=== PATIENT | male | born 1990 | race African-American/Black ===

== ENCOUNTER 2020-08-01 21:09 | Inpatient (IN) | payer OTHER, SELFPAY ==
--- NOTE | ~2020-08-01 | XR_ITS ---
EXAMINATION: XR chest 1V portable DATE: 08/02/2020 09:40 INDICATION: Right-sided pneumonia. TECHNIQUE: A single frontal view of the chest was obtained. COMPARISON: Chest CT 08/01/2020 FINDINGS: There are airspace opacities in right lower lung zone with areas of cavitation. There are m ild airspace opacities in left lower lung zone. No pleural effusion or pneumothorax. The heart size i s normal. IMPRESSION: 1. Airspace opacities in right lower lung zone with areas of cavitation, consistent with pneumonia. 2. Mild airspace opacities in left lower lung zone, consistent with atelectasis versus pneumonia. Reviewed, dictated and finalized at location A. WASHER IMPRESSION: 1. Airspace opacities in right lower lung zone with areas of cavitation, consis tent with pneumonia. 2. Mild airspace opacities in left lower lung zone, consistent with atelectasis versus pneumonia.
--- NOTE | ~2020-08-01 | CT_ITS ---
EXAMINATION:CT chest wo con DATE: 08/05/2020 08:07 INDICATION: Right middle lobe necrotizing pneumonia. TECHNIQUE: Computed tomography (CT) of the chest was performed without intravenous contrast. Automate d exposure control and iterative reconstruction technique were employed. The dose-length product (DLP ) was 758.36 mGy-cm. COMPARISON: Chest CT 08/01/2020 FINDINGS: There is a moderate-sized loculated right hydropneumothorax. There is mild atelectasis in r ight upper lobe and right lower lobe. There are airspace opacities and groundglass opacities in right middle lobe with cavitation, consistent with pneumonia. The heart size is normal. No pericardial eff usion. There is mild mediastinal lymphadenopathy, likely reactive. The bones are unremarkable. IMPRESSION: 1. Persistent necrotizing pneumonia in right lung middle lobe. 2. New loculated right-sided hydropneumothorax, likely empyema. 3. Mild mediastinal lymphadenopathy, likely reactive. Reviewed, dictated and finalized at location A. OR DESIGN ENGINEERING SPECIALIST
--- NOTE | ~2020-08-01 | XR_ITS ---
XR chest 1V portable 08/04/2020 05:52 Indication: Right necrotizing pneumonia Procedure: AP portable chest Comparison: Comparison to multiple prior studies sequentially, with oldest reviewed study dated 02/2021. Findings: Heart size normal. Left lung clear. Asymmetric right-sided airspace disease with consolidat ion of the right middle lobe. Possible small right effusion. No pneumothorax. Impression: 1: Progression of asymmetric airspace disease of the right lung with focal consolidation right middle lobe, most likely combination of pneumonia and/or atelectasis. Reviewed, dictated and finalized at location A. ER OPERATOR Impression: 1: Progression of asymmetric airspace disease of the right lung with focal cons olidation right middle lobe, most likely combination of pneumonia and/or atelec tasis.
--- NOTE | ~2020-08-01 | XR_ITS ---
XR chest 1V portable 08/03/2020 06:01 Indication: Right-sided pneumonia Procedure: AP portable chest Comparison: 08/02/2020 Findings: Heart size normal. Asymmetric right basilar airspace consolidation, consistent with pneumon ia. No significant interval change. Impression: 1: Stable airspace consolidation right lower lung zone, most likely pneumonia. 2: Small right pleural effusion. Reviewed, dictated and finalized at location A. TRUCK DRIVER Impression: 1: Stable airspace consolidation right lower lung zone, most likely pneumonia. 2: Small right pleural effusion.
--- NOTE | ~2020-08-01 | CT_ITS ---
EXAMINATION: CTA chest PE protocol EXAM DATE: 08/01/2020 22:56 INDICATION: Right CP with shortness of air. TECHNIQUE: Spiral CTA of the chest (pulmonary arteries) was performed with 100 cc Omnipaque 350 intr avenous contrast injection. Suboptimal pulmonary arterial opacification, however patient declined rep eat injection. Images were acquired during the pulmonary arterial phase. Coronal maximum intensity p rojection 3D-reconstructions were created by the technologist on dedicated workstation. Axial, coron al and sagittal reformatted images were reviewed. The dose-length product (DLP) for this examination was 1016.03 mGy-cm. The exposure was tailored according to patient size (auto mA exposure control) , and iterative reconstruction (ASIR) was used as additional dose reduction technique. There is no p rior study for comparison. FINDINGS: There is suboptimal enhancement of the pulmonary arteries, and also some respiratory motio n limiting evaluation of segmental arteries. No central pulmonary emboli. No thoracic aortic dissect ion. Subsegmental right middle lobe consolidation with cystic change and air fluid levels. Appearanc e is most consistent with necrotic pneumonia, most likely bacterial. Left lung is clear. Trace perica rdial and right pleural effusions. Tracheobronchial tree is patent. There is no mediastinal, hilar or axillary lymphadenopathy. There is no pneumothorax. Heart normal in size. No evidence of co ronary arterial calcification. Upper abdomen is unremarkable. The bones are unremarkable. IMPRESSION: 1. Limited segmental evaluation, but no central pulmonary emboli. 2. Necrotic right middle lobe lateral segmental pneumonia. Reviewed, dictated and finalized at location G. SCIENCE PROFESSOR
--- NOTE | ~2020-08-01 | XR_ITS ---
EXAMINATION: XR chest 1V portable INDICATION: Necrotizing pneumonia of the right lung TECHNIQUE: Portable AP chest at 0540 hours COMPARISON: 08/04/2020 FINDINGS: Airspace opacities of the right mid and upper lung zones are unchanged. There are worsening opacities of the right lung base. The left lung is clear. No definite pleural effusion is identified . There is no pneumothorax. The cardiomediastinal silhouette is stable. IMPRESSION: 1. Right lung disease with worsening in the lung base, consistent with pneumonia. Reviewed, dictated and finalized at location A. ENTRY PROFESSIONAL IMPRESSION: 1. Right lung disease with worsening in the lung base, consistent with pneumoni a.
[2020-08-01 21:12] VITALS: BP 118/65; PULSE 128; RESP 18; TEMP 36.4; O2SAT 96
[2020-08-01 22:00] LABS: Basophils Absolute Auto 0.2 K/mm3 (0.0-0.1); Basophils Percent Auto 0.7 % (0.2-1.2); Eosinophils Absolute Auto 1.5 K/mm3 (0-0.3); Eosinophils Percent Auto 5.9 % (0-4.4); Hematocrit 46.7 % (42.0-52.0); Hemoglobin 16.4 g/dL (14.0-18.0); Immature Granulocyte Absolute 0.88 K/mm3 (0.00-0.031); Immature Granulocyte Percent A 3.6 % (0-0.5); Immature Platelet Fraction Pct 8.3 % (0.9-11.2); Lymphocytes Absolute Auto 0.96 K/mm3 (0.9-3.2); Lymphocytes Percent Auto 3.9 % (18.3-44.2); Mean Corpuscular HGB Conc 35.1 g/dl (32-36); Mean Corpuscular Hemoglobin 33.1 pg (26-34); Mean Corpuscular Volume 94.2 fl (80-100); Mean Platelet Volume 11.9 fl (7.4-10.4); Monocytes Percent Auto 7.9 % (2.6-8.5); Neutrophils Absolute Auto 19.3 K/mm3 (1.3-6.7); Platelet Count Result 239 k/mm3 (150-375); Red Blood Count 4.96 M/mm3 (4.6-6.20); White Blood Count 24.8 K/mm3 (4.5-10.0)
--- NOTE | 2020-08-01 22:00 | ED.GENADULT ---
HPI - General Adult General Chief complaint: Unspecified Stated complaint: coughing up blood/ right flank pain Time Seen by Provider: 08/01/20 21:32 History of Present Illness HPI narrative: Patient is a 30-year-old male who presents ER with hemoptysis. Reports he woke up today and was having pain in his right chest wall and has been having frequent coughing. He began to have stent streaks of blood in his sputum which is increased in amount. He reports exertional dyspnea beginning today as well. He has history of asthma and feels like he is wheezing. He has been using his nebulizer with only mild improvement. Patient reports over the last 2 to 3 days she has been having cyclical sweats and chills. No loss of smell or taste. 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 No other additional known sick contacts. He has had no lower extremity swelling. No recent surgery or long distance travel. No previous history of DVT/PE. Related Data Home Medications Medication Instructions Recorded Confirmed albuterol sulfate 2 puff INHALATION TID PRN 08/02/20 08/02/20 albuterol sulfate 2.5 mg INHALATION BID 08/02/20 08/02/20 budesonide-formoterol [Symbicort] 2 puff INHALATION BID 08/02/20 08/02/20 Allergies Allergy/AdvReac Type Severity Reaction Status Date / Time No Known Allergies Allergy Verified 08/01/20 21:11 Review of Systems Review of Systems: All systems reviewed & are unremarkable except as noted in HPI and below Constitutional: Constitutional: Reports chills, Reports excessive sweating, Reports fatigue and Reports night sweats ENT: Denies nasal congestion and Denies sore throat Cardiovascular: Cardiovascular: Reports chest pain, Reports diaphoresis, Denies rapid heart rate and Denies leg edema Respiratory: Respiratory: Reports cough, Reports hemoptysis and Reports dyspnea Gastrointestinal: Gastrointestinal: Denies abdominal pain, Denies nausea and Denies vomiting Musculoskeletal: Musculoskeletal: Denies back pain and Denies myalgias PMF Past Medical History Medical History (Updated 08/02/20 @ 06:30 by Charlie Villalpando MD) Asthma Surgical History Surgical History No history of previous surgery Social History Social History Smoking status: Current every day smoker Tobacco type: cigarettes Second hand tobacco smoke exposure: Yes Additional smoking assessment comments: Daily Marijuana use Alcohol intake: current Substance use: current Substance use type: marijuana Last use: 08/01/2020 Gender identity (if verbalized by the patient): Male Exam Narrative: Exam Narrative: GENERAL: Ill-appearing, well-nourished, diaphoretic, and in no acute distress. HEAD: Normocephalic, atraumatic. EYES: PERRL and EOMI. CHEST: Scattered rhonchi/wheezing. No respiratory distress. No reproducible chest wall tenderness HEART: Tachycardic and regular. Normal peripheral pulses. ABDOMEN: Soft, nontender, nondistended. EXTREMITIES: Normal range of motion. No edema. NEURO: Alert and oriented x3. PSYCH: Normal mood and affect. Course Course Emergency Course: Discussed with Dr. Kim, requested consult with Pulmonology. A call has been sent out to Dr. Morfin but we have not heard back. Will attempt to touch base with a ticketer at [facility]. Reevaluation(s) Reevaluation #1: Discussed with Dr. Walden with Pulm/Crit who would recommend transfer for pulmonology and potentially CT Surg consultation. May have necrosis from eosinophilia. Recommeneds abx, no steroids. Will speak with medicine team. Date: 08/02/20 Time: 00:35 Reevaluation #2: Spoke with Dr. Villa with medicine, he has accepted the patient. No beds at this time, and unlikely to get one today. Will obs with hospitalist while we wait for a bed to open up. Date: 08/02/20 Time: 00:44 Vital Signs Vital signs: Vital Sig
[2020-08-01] MEDS: SODIUM CHLORIDE 0.9% IV 1,000 ML 999 ML IV CONT (22:07)
[2020-08-01] MEDS: MORPHINE SULFATE (*CRX) 4 MG/ML INJ IV PUSH (22:07)
[2020-08-01 22:09] LABS: Prothrombin Time 14.2 Seconds (11.1-14.7)
[2020-08-01 22:10] LABS: Partial Thromboplastin Time 28.6 SECONDS (22.3-36.8)
[2020-08-01 22:33] LABS: Anion Gap 8 mmol/L (8-16); Blood Urea Nitrogen 15 mg/dL (9-20); Calcium 8.7 mg/dL (8.4-10.2); Carbon Dioxide 27 mmol/L (22-30); Chloride 102 mmol/L (98-107); Estimated CRCL calculation 109 ml/min; Estimated Glomerular Filt Rate > 60; Glucose 151 mg/dL (75-110); Potassium 3.7 mmol/L (3.4-5.0); Sodium 137 mmol/L (137-145)
[2020-08-01] MEDS: HYDROmorphone HCL INJ (*CRX) 1 MG/ML SYR IV PUSH (23:07)
[2020-08-01 23:27] VITALS: PULSE 108; RESP 16
[2020-08-01] MEDS: IPRATROPIUM BR 0.02% INH SOLN 0.5 MG/2.5 ML VIAL INHALATION (23:31)
[2020-08-01] MEDS: ALBUTEROL SULFATE NEB 2.5 MG/0.5 ML INH 5 MG INHALATION (23:31)
[2020-08-02] VITALS (15 sets, daily range): BP systolic 121–154; BP diastolic 77–97; PULSE 91–110; RESP 18–28; TEMP 35.6–37.6; O2SAT 94–100; BMI 39.6
--- NOTE | 2020-08-02 01:52 | PM.IMHP ---
H&P: HPI History of Present Illness Date/Time: 08/02/20 01:52 Chief Complaint: Shortness of breath and right sided chest pain tonight Narrative: This is a pleasant 30-year-old morbidly obese male with known history of chronic asthma presented to the hospital with a complaint of 2 days of right-sided costal tenderness, productive cough of blood-tinged sputum, and increased shortness of breath. The patient woke up today with right-sided costal tenderness and worsening shortness of breath. Associated symptoms included wheezing. He denies any fever, chills, nausea, vomiting, anterior chest pain, abdominal pain, dysuria, hematuria, diarrhea, or rectal bleeding. The patient is not on any blood thinners. He was seen in the emergency room a few days ago when he had right lower back pain and at that time he was told he had a UTI. Patient denies any previous history of significant pneumonia. no history of any previous surgeries or clotting disorders. Patient was evaluated emergency room this evening and found to be septic with tachycardia and elevated white count of 24,800. Chest CT scan revealed a necrotic right middle lobe lateral segmental pneumonia. ER provider has discussed the case with pulmonology at [facility] who recommended that the patient be transferred for cardiothoracic surgical consultation as the patient may need thoracotomy. Dr. Villa, hospitalist, has accepted the patient for transfer although there is no beds available at this time. The patient has been placed on a waiting list we have been asked to admit him to our hospital for ongoing care until he could be transferred to [facility]. Patient has been treated with wide-spectrum antibiotics in the ER tonight and has been swab for COVID-19. Review of Systems Review of Systems: All systems reviewed & are unremarkable except as noted in HPI and below PMFSH Past Medical History Medical History (Updated 08/02/20 @ 02:05 by Shyam Kim MD) Asthma Surgical History Surgical History No history of previous surgery Social History Social History Smoking status: Current every day smoker Tobacco type: cigarettes Second hand tobacco smoke exposure: Yes Additional smoking assessment comments: Daily Marijuana use Alcohol intake: current Substance use: current Substance use type: marijuana Last use: 08/01/2020 Gender identity (if verbalized by the patient): Male Comments family Medical history is reviewed and is noncontributory Meds Home Medications and Allergies Home Medications Medication Instructions Recorded Confirmed Type albuterol sulfate 2 puff INHALATION TID PRN 08/02/20 08/02/20 History albuterol sulfate 2.5 mg INHALATION BID 08/02/20 08/02/20 History budesonide-formoterol [Symbicort] 2 puff INHALATION BID 08/02/20 08/02/20 History Allergies Allergy/AdvReac Type Severity Reaction Status Date / Time No Known Allergies Allergy Verified 08/01/20 21:11 Vital Signs Vital Signs - 24 hr 08/01/20 21:12 08/01/20 23:27 08/02/20 01:51 Temperature 36.4 C L Pulse Rate 128 H 108 H 95 Respiratory Rate 18 16 19 Blood Pressure 118/65 121/83 Pulse Oximetry 96 94 Exam Const: General: cooperative, no acute distress, alert, awake, acute distress mild and ill appearing Nutritional Appearance: obese morbidly obese Orientation/consciousness: patient oriented x3 HENMT: Head: normal to inspection General nose exam: Normal external nose present Face and sinus: normal facial exam Mouth: Yes Normal oral and palatal mucosa present and Yes oropharynx normal Eyes: Pupils: Equal, round and reactive pupils present EOM: EOMs intact bilaterally Neck: Neck: supple and no JVD Thyroid: thyroid normal Lymphatic: lymphadenopathy not noted Chest: Other: significant chest tenderness to palpation of right latera
--- NOTE | 2020-08-02 02:01 | ADMGEN ---
This patient, Emery Garcia, was admitted to 3 [facility] Surg Room 315-01. Patient/family oriented to hospital policies and general routines including ID bracelet, bed and alarms, visiting hours, pain management, procedures, bathroom and other care routines, personal items, smoking policy, room service/diet, and visiting hours. Information on how to activate the Rapid Response Team has been discussed. Patient/Family are encouraged to report perceived risks to care and to ask questions if they do not understand what they are told or what they should do.
[2020-08-02] MEDS: HYDROmorphone HCL INJ (*CRX) 1 MG/ML SYR IV PUSH ×5 (03:10→21:18)
[2020-08-02] MEDS: HYDROcodone/acetaminophen (*CRX) 5-325 MG TABLET 1 TAB PO ×5 (04:21→23:58)
[2020-08-02] MEDS: SODIUM CHLORIDE 0.9% IV 1,000 ML 100 ML IV CONT ×2 (04:22→16:16)
[2020-08-02] MEDS: ALBUTEROL SULFATE (*SP) INHALER 1 PUFF (05:59)
[2020-08-02 06:22] LABS: Hematocrit 45.5 % (42.0-52.0); Hemoglobin 15.6 g/dL (14.0-18.0); Mean Corpuscular HGB Conc 34.3 g/dl (32-36); Mean Corpuscular Hemoglobin 32.1 pg (26-34); Mean Corpuscular Volume 93.6 fl (80-100); Mean Platelet Volume 10.9 fl (7.4-10.4); Platelet Count Result 257 k/mm3 (150-375); Red Blood Count 4.86 M/mm3 (4.6-6.20); Red Cell Distribution Width 12.1 % (11.5-14.5); White Blood Count 27.8 K/mm3 (4.5-10.0)
[2020-08-02 06:26] LABS: Hemoglobin A1C 4.7 % (<5.7)
[2020-08-02 06:29] LABS: Anion Gap 10 mmol/L (8-16); Blood Urea Nitrogen 16 mg/dL (9-20); Calcium 9.1 mg/dL (8.4-10.2); Carbon Dioxide 24 mmol/L (22-30); Chloride 102 mmol/L (98-107); Estimated CRCL calculation 128 ml/min; Estimated Glomerular Filt Rate > 60; Glucose 149 mg/dL (75-110); Magnesium 1.5 mg/dL (1.6-2.3); Potassium 4.3 mmol/L (3.4-5.0); Sodium 136 mmol/L (137-145)
[2020-08-02 06:55] LABS: Band Neutrophils Percent 1 % (0-6); Lymphocytes Absolute Manual 1.94 K/mm3 (1.1-4.5); Monocytes Absolute Manual 3.61 K/mm3 (0.1-0.90); Monocytes Percent Manual 13 % (3-9); Neutrophils Absolute Manual 22.24 K/mm3 (1.3-6.7); Neutrophils Percent Manual 79 % (46-73); Total Cells Counted 100
[2020-08-02 06:56] LABS: Platelet Estimate Adequate (Adequate)
[2020-08-02] MEDS: ALBUTEROL SULFATE (*SP) AEROSOL 1 PUFF 2 PUFF INHALATION ×2 (08:34→13:10)
--- NOTE | 2020-08-02 08:56 | PM.CNPUL ---
Assessment and Plan Assessment and plan (1) Necrotic pneumonia: Code(s): J85.0 - Gangrene and necrosis of lung Status: Acute Assessment and Plan: Patient with evidence of a necrotizing right middle lobe pneumonia. Patient has been started on vancomycin and Zosyn. I will add IV Levaquin for additional Gram-negative and atypical coverage. Patient has a SARS-CoV-2 test pending. Patient has blood and sputum cultures pending. I will send an HIV study. I will order A chest x-ray now as he only had a CT scan in the emergency department and a chest x-ray for 08/03. I agree with transfer to higher level to a facility with thoracic surgeons in case he should not prove with antibiotics. (2) Asthma: Qualifiers: Asthma complication type: unspecified Asthma persistence: unspecified Asthma severity: unspecified severity Qualified Code(s): J45.909 - Unspecified asthma, uncomplicated Code(s): J45.909 - Unspecified asthma, uncomplicated Status: Chronic Assessment and Plan: Currently patient has a few scattered expiratory wheezes in the left lung and minimal worsening in his shortness of breath. He is currently on Symbicort 164.52 puffs b.i.d. and albuterol q.6 in the hospital I agree with this treatment regimen for now. I would like to avoid systemic steroids as he has a necrotizing pneumonia but if his asthma should get worse we may need to consider this treatment. Additional Plan Will follow with you History of Present Illness History of Present Illness Consult date: 08/02/20 Requesting physician: Shyam Kim MD Reason for consult: pneumonia Chief complaint: Necrotizing pneumonia, COVID PUI Narrative: Patient is a 30-year-old morbidly obese male with a history of asthma since childhood who is poorly controlled on Symbicort 160-4.52 puffs b.i.d. and albuterol who presents to the emergency room on 08/02 with 2 days history of nausea and fatigue and 1 day history of shortness of breath right-sided pleuritic chest pain hemoptysis sweats and anorexia. Patient denies any fever and has minimal phlegm production. In the emergency room patient was noted to have a leukocytosis of 24.8 a creatinine of 1.3 and he was hemodynamically stable. Patient had a CT scan of the chest that demonstrated a right middle lobe infiltrate with cavitary lesions some of which had air-fluid levels. Patient was started on vanc Zosyn and admitted to the floor. I was consulted When I saw the patient this morning he says that his symptoms are about the same as the pain medicine is helping with the right-sided pleuritic chest pain his oxygen saturations are 94% on room air and he states that he is breathing a little more labored than he usually does with his asthma symptoms. His white blood cell count is 27.8 and his creatinine has improved to 1.1 with IV fluids. Additional history indicates that he has daily daytime asthma symptoms, no nocturnal awakenings uses his albuterol daily and has minimal activity limitation due to asthma. Accordingly he is uncontrolled per [facility] guidelines he states that he has never been admitted to the hospital for asthma and has no recent exacerbations. Patient does smoke cigarettes from age 89 to current previously at 1/2 pack per day and now down to 5 cigarettes per day he also smokes 1-2 cigarettes of marijuana a day. He denies any other illicit drug use. Patient denies any syncopal episodes denies any seizures denies any loss of consciousness denies blackouts from alcohol denies choking on his food and has had no occupation exposures to sick people. 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 Patient lives with his girlfriend for 2 years and they are monogamous. Review of Systems Review of Systems: All systems reviewed & are unremarkable except as noted in HPI and below Eyes: Eyes: Reports no additional eye complaints ENT: Reports system reviewed and no additional complain
[2020-08-02 12:12] LABS: HIV 1/2 Ab P24 Ag Result Negative (Negative)
--- NOTE | 2020-08-02 15:54 | WPDINFPN2 ---
Progress Note: A&P Assessment and Plan (1) Necrotic pneumonia: Code(s): J85.0 - Gangrene and necrosis of lung Status: Acute Assessment and Plan: Cavitary pneumonia REC Ctx and Vanc #1, micro in process Subjective Date/time seen: 08/02/20 15:54 Objective Data Vital Signs Vital Signs: Vital Signs - 24 hr 08/01/20 21:12 08/01/20 23:27 08/02/20 01:51 Temperature 36.4 C L Pulse Rate 128 H 108 H 95 Respiratory Rate 18 16 19 Blood Pressure 118/65 121/83 Pulse Oximetry 96 94 08/02/20 01:57 08/02/20 02:00 08/02/20 02:06 Temperature 36.7 C Pulse Rate 93 110 H Respiratory Rate 18 20 28 H Blood Pressure 125/83 154/86 H Pulse Oximetry 94 98 94 08/02/20 04:00 08/02/20 06:30 08/02/20 08:00 Temperature 37.6 C H 35.6 C L Pulse Rate 101 H 91 Respiratory Rate 20 20 Blood Pressure 136/88 142/77 H Pulse Oximetry 95 94 96 08/02/20 11:52 08/02/20 12:00 Temperature 35.9 C L Pulse Rate 93 Respiratory Rate 20 Blood Pressure 142/82 H Pulse Oximetry 95 95 Intake/Output Intake/Output: Intake & Output 07/30/20 07/31/20 08/01/20 08/02/20 23:59 23:59 23:59 23:59 Intake Total 1000 2521 Balance 1000 2521 Meds/Results Medications: Active Medications Generic Name Dose Route Start Last Admin Trade Name Freq PRN Reason Stop Dose Admin Acetaminophen 650 mg 08/02/20 00:50 Acetaminophen 325 Mg Tablet PO Q4H PRN Mild Pain (1-3) or Fever Hydrocodone Bitart/Acetaminophen 1 tab 08/02/20 00:50 08/02/20 15:04 Hydrocodone/Acetaminophen (*Crx) 5-325 Mg Tablet PO 1 tab Q4H PRN Administration Pain Rated 4-6 Albuterol 2 puff 08/02/20 02:06 Albuterol Sulfate (*Sp) Aerosol 1 Puff INHALATION Q6HRT PRN Shortness Of Breath Albuterol 2 puff 08/02/20 08:00 08/02/20 13:10 Albuterol Sulfate (*Sp) Aerosol 1 Puff INHALATION 2 puff Q6HRT ZANDRA Administration Budesonide/Formoterol Fumarate 2 puff 08/02/20 08:00 08/02/20 10:56 Budesonide/Form 160-4.5 Mcg (*Sp) INHALATION 2 puff Q12HRT ZANDRA Administration Guaifenesin/Dextromethorphan 10 ml 08/02/20 06:45 Guaifenesin/Dextromethorphan 10 Ml Udc PO Q4H PRN Cough Hydromorphone HCl 1 mg 08/02/20 00:50 08/02/20 10:56 Hydromorphone Hcl Inj (*Crx) 1 Mg/Ml Syr IV PUSH 1 mg Q4H PRN Administration Pain Rated 7-10 Vancomycin HCl 2,000 mg in 500 mls @ 250 mls/hr 08/02/20 12:00 08/02/20 15:08 Vancomycin 2,000 Mg/D5w 500 Ml IVPB Infused Q12H ZANDRA Infusion Sodium Chloride 1,000 mls @ 100 mls/hr 08/02/20 03:25 08/02/20 05:45 Normal Saline Iv IV CONT 100 mls/hr .Q10H ZANDRA Infusion Ondansetron HCl 4 mg 08/02/20 00:50 Ondansetron Inj 4 Mg/2 Ml Vial IV PUSH Q4H PRN Nausea Radiology Results: ITS Impressions Chest CTA 08/01/20 23:00 IMPRESSION: 1. Limited segmental evaluation, but no central pulmonary emboli. 2. Necrotic right middle lobe lateral segmental pneumonia. Chest X-Ray 08/02/20 10:26 IMPRESSION: 1. Airspace opacities in right lower lung zone with areas of cavitation, consistent with pneumonia. 2. Mild airspace opacities in left lower lung zone, consistent with atelectasis versus pneumonia. Labs Labs: Laboratory Results - last 24 hr 08/01/20 08/01/20 08/01/20 21:52 21:52 22:15 WBC 24.8 H RBC 4.96 Hgb 16.4 Hct 46.7 MCV 94.2 MCH 33.1 MCHC 35.1 RDW 12.0 Plt Count 239 MPV 11.9 H Immature Gran % (Auto) 3.6 H Neut % (Auto) 78.0 H Lymph % (Auto) 3.9 L [place] % (Auto) 7.9 Eos % (Auto) 5.9 H Baso % (Auto) 0.7 Lymph # (Auto) 0.96 [place] # (Auto) 2.0 H Eos # (Auto) 1.5 H Baso # (Auto) 0.2 H Abs Immat Gran (auto) 0.88 H Absolute Neuts (auto) 19.3 H Absolute Nucleated RBC 0.0 Total Counted Neutrophils % (Manual) Band Neutrophils % Lymphocytes % (Manual) Monocytes % (Manual) Nucleated RBC % 0.0 Abs
[2020-08-02] MEDS: guaiFENesin/DEXTROMETHORPHAN 10 ML UDC PO ×2 (17:06→21:18)
[2020-08-02 17:23] LABS: SARS-CoV-2 RNA PCR Negative
--- NOTE | 2020-08-02 17:48 | PM.IMPN ---
Progress Note: A&P Assessment and Plan (1) Tobacco dependence: Code(s): F17.200 - Nicotine dependence, unspecified, uncomplicated Status: Chronic Assessment and Plan: Nicotine patch as needed. (2) Asthma: Qualifiers: Asthma severity: unspecified severity Asthma persistence: unspecified Asthma complication type: unspecified Qualified Code(s): J45.909 - Unspecified asthma, uncomplicated Code(s): J45.909 - Unspecified asthma, uncomplicated Status: Chronic Assessment and Plan: Albuterol MDI (3) Suspected 2019 novel coronavirus infection: Code(s): Z20.822 - Contact with and (suspected) exposure to COVID-19 Status: Acute Assessment and Plan: Ruling out. (4) Necrotic pneumonia: Code(s): J85.0 - Gangrene and necrosis of lung Status: Acute Assessment and Plan: On Vanc and Ceftriaxone Appreciate ID and Pulmonology note (5) Sepsis: Qualifiers: Sepsis type: sepsis due to unspecified organism Sepsis acute organ dysfunction status: unspecified Qualified Code(s): A41.9 - Sepsis, unspecified organism Code(s): A41.9 - Sepsis, unspecified organism Status: Acute Assessment and Plan: On antibiotics Early goal directed therapy. Subjective Date/time seen: 08/02/20 17:48 States that he feels fine. Review of Systems Review of Systems: Narrative: Patient presented to ED due to hemoptysis, had been in his usual state of health up until 3 days ago. Constitutional: Comments: no weight loss, no night sweats. ENT: Comments: no nasal congestion. Cardiovascular: Comments: no chest pain. Respiratory: Comments: hemoptysis, pain with deep inspiration. Gastrointestinal: Comments: no n/v/abdominal pain. Musculoskeletal: Comments: no joint pain. Integumentary/Breasts: Comments: no rashes. Exam Narrative: Exam Narrative: Patient is sitting in bed in NAD however diaphoretic. Const: General: no acute distress, alert, awake, Physically active and ill appearing Nutritional Appearance: average body habitus HENMT: Head: normal to inspection and normocephalic Ears: hearing grossly normal bilaterally General nose exam: Normal external nose present Face and sinus: normal facial exam Eyes: General: appearance normal, both eyes and all related structures Pupils: Equal, round and reactive pupils present EOM: EOMs intact bilaterally Neck: Neck: no lymphadenopathy, supple and no JVD Resp: Effort & Inspection: normal respiratory effort Auscultation: clear to auscultation bilaterally Cardio: Rate: regular rate Rhythm: regular rhythm GI: Inspection: normal to inspection GI Palp: Yes Soft to palpation and Yes No hepatosplenomegaly present Skin: General skin exam: normal color Lesions: no lesions Rashes: no rashes Wounds: no wounds Neuro: General: patient oriented x3 Cranial nerves: Yes CN's II-XII intact bilaterally and Yes Equal, round and reactive pupils present Cognition (Neuro): normal cognition Speech: normal speech Gait exam (Neuro): Normal gait present Motor exam (neuro): 5/5 motor strength present throughout Extrem: General: full ROM and no pedal edema Objective Data Vital Signs Vital Signs: Vital Signs - 24 hr 08/01/20 21:12 08/01/20 23:27 08/02/20 01:51 Temperature 97.5 F L Pulse Rate 128 H 108 H 95 Respiratory Rate 18 16 19 Blood Pressure 118/65 121/83 Pulse Oximetry 96 94 08/02/20 01:57 08/02/20 02:00 08/02/20 02:06 Temperature 98.1 F Pulse Rate 93 110 H Respiratory Rate 18 20 28 H Blood Pressure 125/83 154/86 H Pulse Oximetry 94 98 94 08/02/20 04:00 08/02/20 06:30 08/02/20 08:00 Temperature 99.7 F H 96.1 F L Pulse Rate 101 H 91 Respiratory Rate 20 20 Blood Pressure 136/88 142/77 H Pulse Oximetry 95 94 96 08/02/20 11:52 08/02/20 12:00 08/02/20 16:00 Temperature 96.6 F L 96.9 F L Pulse Rate 93 102 H Respiratory Rate 20 20 Blood Pressure 142/82 H 151/
--- NOTE | 2020-08-02 20:38 | CONS_ITS ---
DATE OF CONSULTATION: 08/02/2020 REASON FOR CONSULTATION: Cavitary pneumonia. HISTORY OF PRESENT ILLNESS: A 30-year-old male with asthma. He started on Symbicort about 1 week prior to admission and previously was on albuterol inhalers and updrafts. He was in his usual state of health until 1 day before admission when he developed malaise and lassitude. He slept the afternoon into the night. He woke on the morning of the with gross hemoptysis, shortness of breath, right-sided anterior chest pain with a deep breath, cough. No fever, rigors, nor night sweats. Symptoms have persisted and he presented to the emergency room yesterday, was admitted late last night or early this morning. He has been given levofloxacin, piperacillin and vancomycin. He has been on no antibiotics for any purpose in the last 3 months. His physician had apparently not been concerned about any new developments when here she prescribed the Symbicort simply that steroids were believed to be helpful. He has been on no other immunosuppressants. He has no pets at home. He lives with various parents, siblings, all of whom have been healthy. The patient did not travel out of the [place] in the last 3 months. He has had no previous episodes of pneumonia nor similar syndromes in the past. He has not required any surgical intervention while here. Smokes about 4-5 cigarettes per day. Also, 2 g of marijuana per day and some alcohol, but not too excess. PRESENT MEDICATIONS: No systemic immunosuppressants. ALLERGIES: NONE KNOWN. PAST MEDICAL HISTORY: Negative except as above. REVIEW OF SYSTEMS: RESPIRATORY: Otherwise negative. ENDOCRINE: Otherwise negative. CONSTITUTIONAL: Otherwise negative. SKIN: Otherwise negative. GI: Otherwise negative. FAMILY HISTORY: Not pertinent to his present illness. SOCIAL HISTORY: He lives with multiple family members as above. He lives locally. No family at the bedside currently and has a girlfriend. No children. PHYSICAL EXAMINATION: GENERAL: This is a healthy-appearing male, in his actual age. No distress. VITAL SIGNS: T-max 37.6, blood pressure 142/82, pulse 93, respirations 20, and saturation 95% on room air. SKIN: No rashes. Warm and dry. EENT: Conjunctivae are clear. The oropharynx, oral mucosa normal. Teeth in good repair. NECK: No masses, asymmetry, thyromegaly, meningismus. LUNGS: Mildly diminished breath sounds in the mid lung pederson, otherwise clear to auscultation and percussion, no egophony, no fremitus. CHEST: Equal expansion. Normal AP diameter. No tenderness. CARDIAC: Soft S1, S2. Regular rate and rhythm. No gallops. ABDOMEN: Obese, nontender. No masses. EXTREMITIES: Trace ankle edema. No hand edema. Also, no clubbing, cyanosis. RADIOLOGY: I personally reviewed his chest x-ray, which shows a right lower lung field infiltrates. I also reviewed the radiologist's reading. CT of the chest also performed and demonstrated right middle lobe lateral segment consolidation with cystic change, air-fluid levels. No other abnormalities. LABORATORY DATA: Sputum, blood cultures, all in process from late last evening or early this morning. White count was 24.8, now 27.8, hemoglobin 15.6, platelets 257. Earlier differential showed a minimal left shift. No blasts. Chemistry panel normal except for glucose of 149. Hemoglobin A1c 4.7%. HIV is nonreactive. Coronavirus assay in process. ASSESSMENT: 1. Chest pain, hemoptysis, lung infiltrate, probably due to pneumonia. This could be due to fungal, pneumococcal, streptococcal gram-negative disease. He may have inhaled pathogens via his marijuana use. Suspicion for underlying immunodeficiency is low. 2. Asthma. 3. Tobacco and marijuana use. RECOMMENDATIONS:
[2020-08-02] MEDS: IPRATROPIUM BR 0.02% INH SOLN 0.5 MG/2.5 ML VIAL INHALATION (21:23)
[2020-08-02] MEDS: LEVALBUTEROL NEB 1.25 MG/3 ML 0.63 MG INHALATION (21:23)
[2020-08-03] VITALS (16 sets, daily range): BP systolic 112–179; BP diastolic 63–85; PULSE 86–98; RESP 18–22; TEMP 36–37.3; O2SAT 95–100
[2020-08-03] MEDS: HYDROmorphone HCL INJ (*CRX) 1 MG/ML SYR IV PUSH ×5 (02:25→20:07)
[2020-08-03] MEDS: IPRATROPIUM BR 0.02% INH SOLN 0.5 MG/2.5 ML VIAL INHALATION ×4 (03:24→20:38)
[2020-08-03] MEDS: LEVALBUTEROL NEB 1.25 MG/3 ML 0.63 MG INHALATION ×4 (03:24→20:38)
[2020-08-03] MEDS: SODIUM CHLORIDE 0.9% IV 1,000 ML 100 ML IV CONT ×2 (08:05→22:45)
[2020-08-03] MEDS: HYDROcodone/acetaminophen (*CRX) 5-325 MG TABLET 1 TAB PO ×3 (08:06→22:45)
--- NOTE | 2020-08-03 10:49 | PM.PNPUL ---
Progress Note: A&P Assessment and Plan (1) Necrotic pneumonia: Code(s): J85.0 - Gangrene and necrosis of lung Status: Acute Assessment and Plan: 08/02 Patient with evidence of a necrotizing right middle lobe pneumonia. Patient has been started on vancomycin and Zosyn. I will add IV Levaquin for additional Gram-negative and atypical coverage. Patient has a SARS-CoV-2 test pending. Patient has blood and sputum cultures pending. I will send an HIV study. I will order A chest x-ray now as he only had a CT scan in the emergency department and a chest x-ray for 08/03. I agree with transfer to higher level to a facility with thoracic surgeons in case he should not prove with antibiotics. SARS CoV-2 negative. HIV negative. GRAM STAIN: Few White blood cells seen, Rare epithelial cells, Few Mixed bacterial jim. 08/03 Patient improved clinically and CXR unchanged. Continue ceftriaxone and vanco. Cultures negative, MRSA pending. Will check CXR in morning. (2) Asthma: Qualifiers: Asthma complication type: unspecified Asthma persistence: unspecified Asthma severity: unspecified severity Qualified Code(s): J45.909 - Unspecified asthma, uncomplicated Code(s): J45.909 - Unspecified asthma, uncomplicated Status: Chronic Assessment and Plan: 08/02 Currently patient has a few scattered expiratory wheezes in the left lung and minimal worsening in his shortness of breath. He is currently on Symbicort 160/4.5 2 puffs b.i.d. and albuterol q.6 in the hospital I agree with this treatment regimen for now. I would like to avoid systemic steroids as he has a necrotizing pneumonia but if his asthma should get worse we may need to consider this treatment. 08/03 No wheezes today continue symbicort and albuterol. Additional Plan Will follow with you Subjective Date/time seen: Patient is a 30-year-old morbidly obese male with a history of asthma since childhood who is poorly controlled on Symbicort 160-4.52 puffs b.i.d. and albuterol who presents to the emergency room on 08/02 with 2 days history of nausea and fatigue and 1 day history of shortness of breath right-sided pleuritic chest pain hemoptysis sweats and anorexia. Patient denies any fever and has minimal phlegm production. In the emergency room patient was noted to have a leukocytosis of 24.8 a creatinine of 1.3 and he was hemodynamically stable. Patient had a CT scan of the chest that demonstrated a right middle lobe infiltrate with cavitary lesions some of which had air-fluid levels. Patient was started on vanc Zosyn and admitted to the floor. I was consulted When I saw the patient this morning he says that his symptoms are about the same as the pain medicine is helping with the right-sided pleuritic chest pain his oxygen saturations are 94% on room air and he states that he is breathing a little more labored than he usually does with his asthma symptoms. His white blood cell count is 27.8 and his creatinine has improved to 1.1 with IV fluids. Additional history indicates that he has daily daytime asthma symptoms, no nocturnal awakenings uses his albuterol daily and has minimal activity limitation due to asthma. Accordingly he is uncontrolled per [place] guidelines he states that he has never been admitted to the hospital for asthma and has no recent exacerbations. Patient does smoke cigarettes from age 89 to current previously at 1/2 pack per day and now down to 5 cigarettes per day he also smokes 1-2 cigarettes of marijuana a day. He denies any other illicit drug use. Patient denies any syncopal episodes denies any seizures denies any loss of consciousness denies blackouts from alcohol denies choking on his food and has had no occupation exposures to sick people. 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 Patient lives with his girlfriend for 2 years and they are monogamous. Seen by ID later in day and changed to vanco and ceftriaxone 08/03/20 Martha
[2020-08-03 12:17] LABS: Vancomycin Trough 8.8 ug/mL (10.0-20.0)
--- NOTE | 2020-08-03 14:31 | PM.IMPN ---
Progress Note: A&P Assessment and Plan (1) Tobacco dependence: Code(s): F17.200 - Nicotine dependence, unspecified, uncomplicated Status: Chronic Assessment and Plan: Nicotine patch as needed. (2) Asthma: Qualifiers: Asthma severity: unspecified severity Asthma persistence: unspecified Asthma complication type: unspecified Qualified Code(s): J45.909 - Unspecified asthma, uncomplicated Code(s): J45.909 - Unspecified asthma, uncomplicated Status: Chronic Assessment and Plan: Continue inhale steroid and albuterol (3) Suspected 2019 novel coronavirus infection: Code(s): Z20.822 - Contact with and (suspected) exposure to COVID-19 Status: Acute Assessment and Plan: Ruled out (4) Abnormal glucose: Code(s): R73.09 - Other abnormal glucose Status: Acute (5) Sepsis: Qualifiers: Sepsis type: sepsis due to unspecified organism Sepsis acute organ dysfunction status: unspecified Qualified Code(s): A41.9 - Sepsis, unspecified organism Code(s): A41.9 - Sepsis, unspecified organism Status: Acute Assessment and Plan: [place] goal directed therapy. (6) Necrotic pneumonia: Code(s): J85.0 - Gangrene and necrosis of lung Status: Acute Assessment and Plan: HIV screen is negative. Continue present management. Appreciate Pulmonology and ID notes Awaiting bed at [facility]. Subjective Date/time seen: 08/03/20 14:31 States that he feels better. No issues over night. Review of Systems Review of Systems: Narrative: Patient presented to the hospital due to hemoptysis. Constitutional: Comments: denies chills, fevers, rigors, decreased appetite. ENT: Comments: no throat pain. Cardiovascular: Comments: no chest pain/precordial Respiratory: Comments: pain with deep inspiration. Gastrointestinal: Comments: njo n/v/abdominal pain/diarrhea. Musculoskeletal: Comments: no joint pain, no muscle aches or pains. Neurologic: Comments: no sensory motor deficit. Hematologic/Lymphatic: Comments: no LAP. Exam Narrative: Exam Narrative: Patient presented to ED due to hemoptysis. Const: General: cooperative, no acute distress, alert, awake, Physically active and ill appearing Nutritional Appearance: overweight Orientation/consciousness: patient oriented x3 Limitations: no limitations HENMT: Head: normal to inspection and normocephalic Ears: hearing grossly normal bilaterally Face and sinus: normal facial exam Neck: Neck: no lymphadenopathy, supple and no JVD Lymphatic: no lymphadenopathy noted Resp: Auscultation: wheezes scattered wheezes Cardio: Jugular venous distension: no JVD Rate: regular rate Rhythm: regular rhythm GI: Inspection: normal to inspection GI Palp: Yes Soft to palpation and Yes No hepatosplenomegaly present Skin: General skin exam: normal color Lesions: no lesions Rashes: no rashes Wounds: no wounds Neuro: General: patient oriented x3 and CN's II-XI intact bilaterally Cranial nerves: Yes CN's II-XII intact bilaterally and Yes Equal, round and reactive pupils present Cognition (Neuro): normal cognition Speech: normal speech Gait exam (Neuro): Normal gait present Motor exam (neuro): 5/5 motor strength present throughout Extrem: General: normal to inspection and no pedal edema Objective Data Vital Signs Vital Signs: Vital Signs - 24 hr 08/02/20 16:00 08/02/20 19:46 08/02/20 20:00 Temperature 96.9 F L 97.4 F L Pulse Rate 102 H 92 Respiratory Rate 20 18 Blood Pressure 151/97 H 147/81 H Pulse Oximetry 98 98 100 08/02/20 21:29 08/02/20 21:30 08/02/20 21:33 Temperature Pulse Rate 97 97 109 H Respiratory Rate 20 20 20 Blood Pressure Pulse Oximetry 98 08/03/20 00:00 08/03/20 02:22 08/03/20 03:24 Temperature 97.2 F L Pulse Rate 96 94 Respiratory Rate 18 20 Blood Pressure 112/77 124/72 Pulse Oximetry 100 08/03/20 03:39 01/0
[2020-08-03] MEDS: hydrALAZINE HCL 20 MG/ML VIAL 10 MG IV PUSH (17:52)
[2020-08-04] VITALS (12 sets, daily range): BP systolic 139–165; BP diastolic 67–86; PULSE 96–132; RESP 18–24; TEMP 36.4–37.2; O2SAT 95–99
[2020-08-04] MEDS: LEVALBUTEROL NEB 1.25 MG/3 ML 0.63 MG INHALATION ×4 (02:45→19:52)
[2020-08-04] MEDS: IPRATROPIUM BR 0.02% INH SOLN 0.5 MG/2.5 ML VIAL INHALATION ×4 (02:45→19:52)
[2020-08-04] MEDS: HYDROmorphone HCL INJ (*CRX) 1 MG/ML SYR IV PUSH ×4 (09:20→21:22)
[2020-08-04] MEDS: guaiFENesin/DEXTROMETHORPHAN 10 ML UDC PO ×3 (09:21→21:26)
[2020-08-04] MEDS: BUDESONIDE RESPULE NEB 0.5 MG/2 ML AMP INHALATION ×2 (09:34→19:52)
--- NOTE | 2020-08-04 10:34 | PM.PNPUL ---
Progress Note: A&P Assessment and Plan (1) Necrotic pneumonia: Code(s): J85.0 - Gangrene and necrosis of lung Status: Acute Assessment and Plan: 08/02 Patient with evidence of a necrotizing right middle lobe pneumonia. Patient has been started on vancomycin and Zosyn. I will add IV Levaquin for additional Gram-negative and atypical coverage. Patient has a SARS-CoV-2 test pending. Patient has blood and sputum cultures pending. I will send an HIV study. I will order A chest x-ray now as he only had a CT scan in the emergency department and a chest x-ray for 08/03. I agree with transfer to higher level to a facility with thoracic surgeons in case he should not prove with antibiotics. SARS CoV-2 negative. HIV negative. GRAM STAIN: Few White blood cells seen, Rare epithelial cells, Few Mixed bacterial jim. Normal jim. Transfer to [facility] arrangements made by ED, awaiting bed. 08/03 Patient improved clinically and CXR unchanged. Continue ceftriaxone and vanco. Cultures negative, MRSA pending. Will check CXR in morning. Agree with transfer to [facility] with thoracic surgery in case he does not respond to antibiotics. 08/04 Clinically somewhat improved with worsening infiltrates on CXR. Temperature trending down. WBC pending. CXR in morning. Will repeat CT scan chest after 5 days antibiotics (08/06). Agree with transfer to [facility]. (2) Asthma: Qualifiers: Asthma severity: unspecified severity Asthma persistence: unspecified Asthma complication type: unspecified Qualified Code(s): J45.909 - Unspecified asthma, uncomplicated Code(s): J45.909 - Unspecified asthma, uncomplicated Status: Chronic Assessment and Plan: 08/02 Currently patient has a few scattered expiratory wheezes in the left lung and minimal worsening in his shortness of breath. He is currently on Symbicort 160/4.5 2 puffs b.i.d. and albuterol q.6 in the hospital I agree with this treatment regimen for now. I would like to avoid systemic steroids as he has a necrotizing pneumonia but if his asthma should get worse we may need to consider this treatment. 08/03 No wheezes today continue symbicort and albuterol. Symbicort inadvertantly held. 08/04 Some wheezes today. Placed on xopenex 0.63 neb Q 6 (tachycardic), ipratroprium 0.5 neb Q 6 and budesonide 0.5 mg Q 12 first dose now. Additional Plan Discussed with Dr. Leach. Will follow with you Subjective Date/time seen: Date/time seen: Patient is a 30-year-old morbidly obese male with a history of asthma since childhood who is poorly controlled on Symbicort 160-4.52 puffs b.i.d. and albuterol who presents to the emergency room on 08/02 with 2 days history of nausea and fatigue and 1 day history of shortness of breath right-sided pleuritic chest pain hemoptysis sweats and anorexia. Patient denies any fever and has minimal phlegm production. In the emergency room patient was noted to have a leukocytosis of 24.8 a creatinine of 1.3 and he was hemodynamically stable. Patient had a CT scan of the chest that demonstrated a right middle lobe infiltrate with cavitary lesions some of which had air-fluid levels. Patient was started on vanc Zosyn and admitted to the floor. I was consulted When I saw the patient this morning he says that his symptoms are about the same as the pain medicine is helping with the right-sided pleuritic chest pain his oxygen saturations are 94% on room air and he states that he is breathing a little more labored than he usually does with his asthma symptoms. His white blood cell count is 27.8 and his creatinine has improved to 1.1 with IV fluids. Additional history indicates that he has daily daytime asthma symptoms, no nocturnal awakenings uses his albuterol daily and has minimal activity limitation due to asthma. Accordingly he is uncontrolled per [place] guidelines he states that he has never been admitted to the hospital for asthma and has no recent exacerbations. Patient does smoke cigarettes fro
[2020-08-04 11:02] LABS: Hematocrit 42.9 % (42.0-52.0); Hemoglobin 14.7 g/dL (14.0-18.0); Mean Corpuscular HGB Conc 34.3 g/dl (32-36); Mean Corpuscular Hemoglobin 32.2 pg (26-34); Mean Corpuscular Volume 93.9 fl (80-100); Mean Platelet Volume 10.6 fl (7.4-10.4); Platelet Count Result 262 k/mm3 (150-375); Red Blood Count 4.57 M/mm3 (4.6-6.20); Red Cell Distribution Width 12.2 % (11.5-14.5); White Blood Count 18.7 K/mm3 (4.5-10.0)
[2020-08-04 11:08] LABS: Anion Gap 6 mmol/L (8-16); Blood Urea Nitrogen 10 mg/dL (9-20); Calcium 8.7 mg/dL (8.4-10.2); Carbon Dioxide 29 mmol/L (22-30); Chloride 98 mmol/L (98-107); Estimated CRCL calculation 154 ml/min; Estimated Glomerular Filt Rate > 60; Glucose 128 mg/dL (75-110); Potassium 3.3 mmol/L (3.4-5.0); Sodium 133 mmol/L (137-145)
[2020-08-04 11:16] LABS: Lymphocytes Absolute Manual 0.74 K/mm3 (1.1-4.5); Monocytes Absolute Manual 2.24 K/mm3 (0.1-0.90); Monocytes Percent Manual 12 % (3-9); Neutrophils Percent Manual 84 % (46-73); Platelet Estimate Adequate (Adequate); Total Cells Counted 100
[2020-08-04] MEDS: SODIUM CHLORIDE 0.9% IV 1,000 ML 100 ML IV CONT (12:39)
--- NOTE | 2020-08-04 14:29 | PM.IMPN ---
Progress Note: A&P Assessment and Plan (1) Tobacco dependence: Code(s): F17.200 - Nicotine dependence, unspecified, uncomplicated Status: Chronic Assessment and Plan: Nicotine patch as needed. Needs to quit. (2) Asthma: Qualifiers: Asthma severity: unspecified severity Asthma persistence: unspecified Asthma complication type: unspecified Qualified Code(s): J45.909 - Unspecified asthma, uncomplicated Code(s): J45.909 - Unspecified asthma, uncomplicated Status: Chronic Assessment and Plan: Breathing treatments Inhaled steroids (3) Suspected 2019 novel coronavirus infection: Code(s): Z20.822 - Contact with and (suspected) exposure to COVID-19 Status: Acute Assessment and Plan: Ruled out with negative PCR (4) Abnormal glucose: Code(s): R73.09 - Other abnormal glucose Status: Acute Assessment and Plan: ISS as needed. (5) Sepsis: Qualifiers: Sepsis type: sepsis due to unspecified organism Sepsis acute organ dysfunction status: unspecified Qualified Code(s): A41.9 - Sepsis, unspecified organism Code(s): A41.9 - Sepsis, unspecified organism Status: Acute Assessment and Plan: On Vancomycin, Rocephin Levaquin added today (6) Necrotic pneumonia: Code(s): J85.0 - Gangrene and necrosis of lung Status: Acute Assessment and Plan: WBC trending down. Awaiting bed at [facility]. Subjective Date/time seen: 08/04/20 14:29 I don't feel well Review of Systems Review of Systems: Narrative: States that he doesn't feel well Constitutional: Comments: diaphoresis. ENT: Comments: Coughing. Cardiovascular: Cardiovascular: Reports dyspnea on exertion Respiratory: Respiratory: Reports hemoptysis, Reports dyspnea on exertion and Reports wheezing Gastrointestinal: Comments: Poor appetite. Musculoskeletal: Comments: no muscle aches or pain. Hematologic/Lymphatic: Comments: no LAP Exam Narrative: Exam Narrative: Patient is sitting in bed. Const: General: no acute distress, ill appearing and other (Diaphoretic.) Nutritional Appearance: overweight Orientation/consciousness: patient oriented x3 Limitations: no limitations HENMT: Head: normocephalic General nose exam: Normal external nose present Face and sinus: normal facial exam Eyes: Pupils: Equal, round and reactive pupils present EOM: EOMs intact bilaterally Neck: Neck: no lymphadenopathy, supple and no JVD Resp: Auscultation: wheezes, diminished lung sounds and bronchovesicular breath sounds on the right Cardio: Jugular venous distension: no JVD Rate: tachycardic GI: GI Palp: Yes Soft to palpation and Yes No hepatosplenomegaly present Skin: Rashes: no rashes Neuro: General: patient oriented x3 Cranial nerves: Yes CN's II-XII intact bilaterally and Yes Equal, round and reactive pupils present Cognition (Neuro): normal cognition Speech: normal speech Motor exam (neuro): 5/5 motor strength present throughout Extrem: General: no joint enlargement and no pedal edema Objective Data Vital Signs Vital Signs: Vital Signs - 24 hr 08/03/20 14:41 08/03/20 15:04 08/03/20 16:00 Temperature 98.0 F Pulse Rate 96 94 89 Respiratory Rate 20 20 20 Blood Pressure 179/83 H Pulse Oximetry 98 97 08/03/20 17:44 08/03/20 20:00 08/03/20 20:40 Temperature Pulse Rate 92 Respiratory Rate 20 Blood Pressure 179/63 H Pulse Oximetry 97 08/03/20 22:00 08/04/20 00:00 08/04/20 02:47 Temperature 99.1 F 98.9 F Pulse Rate 98 96 96 Respiratory Rate 20 20 24 H Blood Pressure 144/82 H 146/67 H Pulse Oximetry 95 98 08/04/20 04:00 08/04/20 08:00 08/04/20 09:16 Temperature 98.4 F 97.6 F Pulse Rate 98 103 H 132 H Respiratory Rate 20 18 24 H Blood Pressure 139/81 148/82 H Pulse Oximetry 99 98 98 Intake/Output Intake/Output: Intake & Output 08/01/20 08/02/20 08/03/20 08/04/20 23
[2020-08-04] MEDS: POTASSIUM CHLORIDE 20 MEQ TABLET 40 MEQ PO (14:35)
[2020-08-04] MEDS: HYDROcodone/acetaminophen (*CRX) 5-325 MG TABLET 1 TAB PO (22:38)
[2020-08-04 23:47] LABS: Pneumococcal Antigen Urine Not Detected (Not Detected)
[2020-08-05] VITALS (12 sets, daily range): BP systolic 146–179; BP diastolic 81–119; PULSE 97–107; RESP 20; TEMP 36.4–37.3; O2SAT 93–100
[2020-08-05] MEDS: HYDROmorphone HCL INJ (*CRX) 1 MG/ML SYR IV PUSH ×3 (01:34→15:18)
[2020-08-05] MEDS: SODIUM CHLORIDE 0.9% IV 1,000 ML 100 ML IV CONT (01:36)
[2020-08-05] MEDS: LEVALBUTEROL NEB 1.25 MG/3 ML 0.63 MG INHALATION ×3 (01:58→14:38)
[2020-08-05] MEDS: IPRATROPIUM BR 0.02% INH SOLN 0.5 MG/2.5 ML VIAL INHALATION ×3 (01:58→14:37)
[2020-08-05] MEDS: guaiFENesin/DEXTROMETHORPHAN 10 ML UDC PO ×2 (05:21→09:38)
--- NOTE | 2020-08-05 06:51 | PC.NURSE ---
0514:[facility] TRANSFER UNIT CALLED TO UPDATE ON BED PLACEMENT AT [facility]. STATES NO BED YET AVAILABLE. CONFIRMED PT STILL IN NEED OF TRANSFER WHEN AVAILABLE.
[2020-08-05 06:56] LABS: Estimated CRCL calculation 154 ml/min; Estimated Glomerular Filt Rate > 60
[2020-08-05 07:30] LABS: Basophils Percent Auto 0.2 % (0.2-1.2); Eosinophils Absolute Auto 0.1 K/mm3 (0-0.3); Eosinophils Percent Auto 0.6 % (0-4.4); Hematocrit 39.8 % (42.0-52.0); Hemoglobin 13.7 g/dL (14.0-18.0); Immature Granulocyte Absolute 1.53 K/mm3 (0.00-0.031); Immature Granulocyte Percent A 8.7 % (0-0.5); Lymphocytes Absolute Auto 1.27 K/mm3 (0.9-3.2); Lymphocytes Percent Auto 7.2 % (18.3-44.2); Mean Corpuscular HGB Conc 34.4 g/dl (32-36); Mean Corpuscular Hemoglobin 32.6 pg (26-34); Mean Corpuscular Volume 94.8 fl (80-100); Mean Platelet Volume 10.7 fl (7.4-10.4); Monocytes Absolute Auto 1.9 K/mm3 (0.1-0.6); Monocytes Percent Auto 10.7 % (2.6-8.5); Neutrophils Absolute Auto 12.8 K/mm3 (1.3-6.7); Neutrophils Percent Auto 72.6 % (45.5-73.1); Platelet Count Result 294 k/mm3 (150-375); Red Cell Distribution Width 12.5 % (11.5-14.5); White Blood Count 17.6 K/mm3 (4.5-10.0)
[2020-08-05 07:52] LABS: Anisocytosis 1+ (NORMAL); Platelet Estimate Adequate (Adequate)
[2020-08-05] MEDS: BUDESONIDE RESPULE NEB 0.5 MG/2 ML AMP INHALATION (08:15)
[2020-08-05] MEDS: hydrALAZINE HCL 20 MG/ML VIAL 10 MG IV PUSH ×2 (08:25→10:20)
--- NOTE | 2020-08-05 09:46 | PC.NURSE ---
called dr Leach about bp of 179/110 after giving one dose IVP 10mg of hydralazine. New order for one time dose of IVP 10mg hydralazine now.
--- NOTE | 2020-08-05 09:50 | PM.PNPUL ---
Progress Note: A&P Assessment and Plan (1) Necrotic pneumonia: Code(s): J85.0 - Gangrene and necrosis of lung Status: Acute Assessment and Plan: 08/02 Patient with evidence of a necrotizing right middle lobe pneumonia. Patient has been started on vancomycin and Zosyn. I will add IV Levaquin for additional Gram-negative and atypical coverage. Patient has a SARS-CoV-2 test pending. Patient has blood and sputum cultures pending. I will send an HIV study. I will order A chest x-ray now as he only had a CT scan in the emergency department and a chest x-ray for 08/03. I agree with transfer to higher level to a facility with thoracic surgeons in case he should not prove with antibiotics. SARS CoV-2 negative. HIV negative. GRAM STAIN: Few White blood cells seen, Rare epithelial cells, Few Mixed bacterial jim. Normal jim. Transfer to [facility] arrangements made by ED, awaiting bed. 08/03 Patient improved clinically and CXR unchanged. Continue ceftriaxone and vanco. Cultures negative, MRSA pending. Will check CXR in morning. Agree with transfer to [facility] with thoracic surgery in case he does not respond to antibiotics. 08/04 Clinically somewhat improved with worsening infiltrates on CXR. Temperature trending down. WBC pending. CXR in morning. Will repeat CT scan chest after 5 days antibiotics (08/06). Agree with transfer to [facility]. 08/05 Minimally improved and now with CT scan which demonstrates 2 large right sided air fluid levels, likely empyema, consolidation RML and RLL. Spoke with [facility] and still no bed availability with no promises for transfer today. Since he needs at least chest tube drainage CLARE, I consulted Dr. Bartolo Hill, interventional pulmonology, at [facility] and he will speak with thoracic surgery regarding transfer. Cultures negative except MRSA in nasopharynx. (2) Asthma: Qualifiers: Asthma complication type: unspecified Asthma persistence: unspecified Asthma severity: unspecified severity Qualified Code(s): J45.909 - Unspecified asthma, uncomplicated Code(s): J45.909 - Unspecified asthma, uncomplicated Status: Chronic Assessment and Plan: 08/02 Currently patient has a few scattered expiratory wheezes in the left lung and minimal worsening in his shortness of breath. He is currently on Symbicort 160/4.5 2 puffs b.i.d. and albuterol q.6 in the hospital I agree with this treatment regimen for now. I would like to avoid systemic steroids as he has a necrotizing pneumonia but if his asthma should get worse we may need to consider this treatment. 08/03 No wheezes today continue symbicort and albuterol. Symbicort inadvertantly held. 08/04 Some wheezes today. Placed on xopenex 0.63 neb Q 6 (tachycardic), ipratroprium 0.5 neb Q 6 and budesonide 0.5 mg Q 12 first dose now. 08/05 Some wheezes but mild, RA sats 94%, avoid systemic steroids if possible as likely empyema. Continue xopenex 0.63 neb Q 6 (tachycardic), ipratroprium 0.5 neb Q 6 and budesonide 0.5 mg Q 12 Additional Plan Left message with Dr. Leach. Will follow with you Subjective Date/time seen: Patient is a 30-year-old morbidly obese male with a history of asthma since childhood who is poorly controlled on Symbicort 160-4.52 puffs b.i.d. and albuterol who presents to the emergency room on 08/02 with 2 days history of nausea and fatigue and 1 day history of shortness of breath right-sided pleuritic chest pain hemoptysis sweats and anorexia. Patient denies any fever and has minimal phlegm production. In the emergency room patient was noted to have a leukocytosis of 24.8 a creatinine of 1.3 and he was hemodynamically stable. Patient had a CT scan of the chest that demonstrated a right middle lobe infiltrate with cavitary lesions some of which had air-fluid levels. Patient was started on vanc Zosyn and admitted to the floor. I was consulted When I saw the patient this morning he says that his symptoms are about the same as the p
[2020-08-05] MEDS: HYDROcodone/acetaminophen (*CRX) 5-325 MG TABLET 1 TAB PO (10:22)
--- NOTE | 2020-08-05 14:23 | PM.TDS ---
Transfer Discharge Sum: Prov Provider Date of admission: 08/03/20 15:08 Primary care physician: Rene Dominguez, PA Admitting clinician: Shyam Kim MD Consults: 08/02/20 Consult to Physician Routine Comment: Consulting Provider: Jose Angel Valencia Reason for consultation: antibiotic managment Has provider been notified: No Consult to Physician Routine Comment: CONSULTED 1212(NM,US) Consulting Provider: Jose Angel Valencia foreclosure field inspector/MD group to consult: ID Reason for consultation: Necrotic pneumonia in a 30 yo Has provider been notified: Yes 08/02/20 00:51 Consult to Physician Routine Comment: Consulting Provider: Koko Beckman foreclosure field inspector/MD group to consult: Dr. Gregoria Beckman Reason for consultation: Necrotizing Pneumonia Has provider been notified: Yes DS: Admitting Diagnosis Admitting Diagnosis Admitting Diagnosis: 1) Necrotic pneumonia: Code(s): J85.0 - Gangrene and necrosis of lung Status: Acute Assessment and Plan: The patient will be admitted to med surg floor. continue oxygen supplementation to maintain pulse ox greater than 94%. continuous pulse oximetry. bronchodilators scheduled in p.r.n. sputum culture. pneumococcal urine antigen. continue pain control with IV narcotic medications. Continue wide-spectrum IV antibiotics. Antitussives. Patient has been accepted for transfer to [facility] for cardiothoracic surgery evaluation. (2) Sepsis: Qualifiers: Sepsis acute organ dysfunction status: unspecified Sepsis type: sepsis due to unspecified organism Qualified Code(s): A41.9 - Sepsis, unspecified organism Code(s): A41.9 - Sepsis, unspecified organism Status: Acute Assessment and Plan: Source of sepsis appears to be pulmonary. We will obtain blood cultures, sputum cultures. Continue IV antibiotics. Monitor acid-base status. Monitor vital signs and urine output closely. (3) Asthma: Qualifiers: Asthma complication type: unspecified Asthma persistence: unspecified Asthma severity: unspecified severity Qualified Code(s): J45.909 - Unspecified asthma, uncomplicated Code(s): J45.909 - Unspecified asthma, uncomplicated Status: Chronic Assessment and Plan: Continue bronchodilators. (4) Abnormal glucose: Code(s): R73.09 - Other abnormal glucose Status: Acute Assessment and Plan: Rule out acute diabetes mellitus. Check hemoglobin A1c. (5) Suspected 2019 novel coronavirus infection: Code(s): Z20.822 - Contact with and (suspected) exposure to COVID-19 Status: Acute Assessment and Plan: Continue droplet isolation. Continue supportive care. COVID-19 results pending. (6) Tobacco dependence: Code(s): F17.200 - Nicotine dependence, unspecified, uncomplicated Status: Chronic Assessment and Plan: I have counseled the patient on tobacco cessation for 4 minutes. He verbalized his agreement understanding of same. Additional Plan DS: Discharge Diagnosis Discharge Diagnosis (1) Necrotic pneumonia: Code(s): J85.0 - Gangrene and necrosis of lung Status: Acute (2) Sepsis: Qualifiers: Sepsis type: sepsis due to unspecified organism Sepsis acute organ dysfunction status: unspecified Qualified Code(s): A41.9 - Sepsis, unspecified organism Code(s): A41.9 - Sepsis, unspecified organism Status: Acute (3) Tobacco dependence: Code(s): F17.200 - Nicotine dependence, unspecified, uncomplicated Status: Chronic (4) Asthma: Qualifiers: Asthma severity: unspecified severity Asthma persistence: unspecified Asthma complication type: unspecified Qualified Code(s): J45.909 - Unspecified asthma, uncomplicated Code(s): J45.909 - Unspecified asthma, uncomplicated Status: Chronic (5) Abnormal glucose: Code(s): R73.09 - Other abnormal glucose Status
--- NOTE | 2020-08-05 15:03 | WPDINFPN2 ---
Progress Note: A&P Assessment and Plan (1) Necrotic pneumonia: Code(s): J85.0 - Gangrene and necrosis of lung Status: Acute Assessment and Plan: Cavitary pneumonia, now with suspected extension into pleural space 2. MRSA colonized at a minimum REC Ctx and Vanc #4, transfer planned Subjective Date/time seen: 08/05/20 15:03 Interval history: right chest pain Exam Narrative: Exam Narrative: afebrile Const: General: no acute distress Resp: Effort & Inspection: normal respiratory effort Auscultation: clear to auscultation bilaterally and diminished lung sounds Cardio: Rate: regular rate Rhythm: regular rhythm Heart sounds: no murmurs Objective Data Vital Signs Vital Signs: Vital Signs - 24 hr 08/04/20 15:59 08/04/20 16:00 08/04/20 16:14 Temperature 36.6 C Pulse Rate 108 H 103 H 112 H Respiratory Rate 20 20 20 Blood Pressure 165/86 H Pulse Oximetry 96 08/04/20 19:52 08/04/20 20:00 08/04/20 20:02 Temperature 36.6 C Pulse Rate 98 107 H 101 H Respiratory Rate 20 21 H 20 Blood Pressure 142/77 H Pulse Oximetry 98 95 08/05/20 00:00 08/05/20 01:58 08/05/20 02:08 Temperature 36.9 C Pulse Rate 99 103 H 102 H Respiratory Rate 20 20 20 Blood Pressure 146/81 H Pulse Oximetry 96 08/05/20 04:00 08/05/20 08:00 08/05/20 08:15 Temperature 37.3 C 36.4 C L Pulse Rate 98 107 H 100 Respiratory Rate 20 20 20 Blood Pressure 163/84 H 147/113 H Pulse Oximetry 96 100 08/05/20 08:19 08/05/20 08:24 08/05/20 09:37 Temperature Pulse Rate 98 107 H Respiratory Rate 20 20 Blood Pressure 179/110 H Pulse Oximetry 100 08/05/20 12:00 08/05/20 12:45 08/05/20 14:38 Temperature 36.9 C Pulse Rate 107 H 100 Respiratory Rate 20 20 Blood Pressure 156/119 H 160/87 H Pulse Oximetry 93 Intake/Output Intake/Output: Intake & Output 08/02/20 08/03/20 08/04/20 08/05/20 23:59 23:59 23:59 23:59 Intake Total 3875 3990 4250 1480 Balance 3875 3990 4250 1480 Meds/Results Medications: Active Medications Generic Name Dose Route Start Last Admin Trade Name Freq PRN Reason Stop Dose Admin Acetaminophen 650 mg 08/02/20 00:50 Acetaminophen 325 Mg Tablet PO Q4H PRN Mild Pain (1-3) or Fever Hydrocodone Bitart/Acetaminophen 1 tab 08/02/20 00:50 08/05/20 10:22 Hydrocodone/Acetaminophen (*Crx) 5-325 Mg Tablet PO 1 tab Q4H PRN Administration Pain Rated 4-6 Albuterol 2 puff 08/02/20 02:06 Albuterol Sulfate (*Sp) Aerosol 1 Puff INHALATION Q6HRT PRN Shortness Of Breath Budesonide 0.5 mg 08/04/20 09:30 08/05/20 08:15 Budesonide Respule Neb 0.5 Mg/2 Ml Amp INHALATION 0.5 mg Q12HRT ZANDRA Administration Guaifenesin/Dextromethorphan 10 ml 08/02/20 06:45 08/05/20 09:38 Guaifenesin/Dextromethorphan 10 Ml Udc PO 10 ml Q4H PRN Administration Cough Hydralazine HCl 10 mg 08/03/20 17:45 08/05/20 08:25 Hydralazine Hcl 20 Mg/Ml Vial IV PUSH 10 mg Q6H PRN Administration Blood Pressure - High Hydromorphone HCl 1 mg 08/02/20 00:50 08/05/20 05:18 Hydromorphone Hcl Inj (*Crx) 1 Mg/Ml Syr IV PUSH 1 mg Q4H PRN Administration Pain Rated 7-10 Sodium Chloride 1,000 mls @ 100 mls/hr 08/02/20 03:25 08/05/20 01:36 Normal Saline Iv IV CONT 100 mls/hr .Q10H ZANDRA Administration Ceftriaxone Sodium/Dextrose 1 gm in 50 mls @ 100 mls/hr 08/02/20 16:00 08/04/20 18:36 Rocephin 1 Gm/D5w 50 Ml IVPB 0 mls/hr Q24H ZANDRA Infusion Vancomycin HCl 1,500 mg in 500 mls @ 333.333 mls/hr 08/03/20 22:00 08/05/20 05:21 Vancomycin 1,500 Mg/D5w 500 Ml IVPB 333 mls/hr Q8H ZANDRA Administration Ipratropium [place] 0.5 mg 08/02/20 20:00 08/05/20 14:37 Ipratropium Br 0.02% Inh Soln 0.5 Mg/2.5 Ml Vial INHALATION 0.5 mg Q6HRT ZANDRA Administration Levalbuterol HCl 0.63 mg 08/02/20 20:00 08/05/20 14:38 Levalbuterol Neb 1.25 Mg/3 Ml INHALATION 0.63 mg Q6HRT ZANDRA Administra
--- NOTE | 2020-08-05 16:26 | PC.NURSE ---
[facility] arrived to transport pt to [facility]. [id number]
== END 2020-08-05 15:35 | disposition short-term general hospital (02) | DRG 720 ==
LOC: ANHED 21:50 → ANH3MEDSUR 08-02 01:04
PROVIDERS: Internal Medicine Pulmonary Disease; Admitting Provider Family Medicine; Emergency Provider Emergency Medicine; PCP Physician Assistant; Visit Provider Internal Medicine
DX: A41.9 Sepsis, unspecified organism (principal); J85.0 Gangrene and necrosis of lung; Z20.822 Contact with and (suspected) exposure to COVID-19; J45.909 Unspecified asthma, uncomplicated; F17.210 Nicotine dependence, cigarettes, uncomplicated; R73.09 Other abnormal glucose; E66.01 Morbid (severe) obesity due to excess calories; Z68.39 Body mass index [BMI] 39.0-39.9, adult
CPT/HCPCS: 36415; 71045; 71250; 71275; 80048; 80202; 82565; 83036; 83735; 85025; 85055; 85610; 85730; 86703; 87040; 87070; 87081; 87205; 87804; 87899; 94640; 96361; 96365; 96366; 96367; 96375; 96376; 99285; A9270; C9803; G0378; G0379; G0432; J0360; J0696; J1170; J2270; J2543; J3370; J7030; Q9967; U0003